=== PATIENT | male | born 1980 | race Caucasian/White ===

== ENCOUNTER 2016-10-13 10:30 | Emergency (ER) | payer SELFPAY ==
[~2016-10-13] VITALS: Ht 177.8 cm; Wt 113.6 kg
[~2016-10-13 10:30] MED LIST: ALBUTEROL2.5 MG/3 M IH; CHERATUSSIN AC 15 ML PO; MEDROL 4MG DOSPA4 MG PO; OMNICEF 300MG300 MG PO
[2016-10-13] MEDS ORDERED: CEPHALEXIN500 M1 PO (11:33)
[2016-10-13] MEDS ORDERED: SEPTRA DS 8001 TAB PO (11:33)
[2016-10-13] MEDS ORDERED: NORCO 325 MG-51 TAB PO (11:33)
[2016-10-13 11:43] VITALS: BP 131/83
== END 2016-10-13 11:44 | disposition home or self-care (01) ==
LOC: ED 10:30
DX: L02.214 Cutaneous abscess of groin (principal); L03.314 Cellulitis of groin